=== PATIENT | female | born 1945 | race Two or more races ===

== ENCOUNTER 2020-03-28 08:37 | Outpatient (CLI) | payer OTHER | END 2020-03-28 08:56 | disposition home or self-care (01) | LOC: SONOGRAMA 08:37 | PROVIDERS: ATTEND Internal Medicine Gastroenterology | DX: R94.6 Abnormal results of thyroid function studies (principal); E05.90 Thyrotoxicosis, unspecified without thyrotoxic crisis or storm ==

== ENCOUNTER 2020-05-09 10:21 | Outpatient (CLI) | payer OTHER | END 2020-05-09 12:00 | disposition home or self-care (01) | LOC: OFIC 805 10:21 | PROVIDERS: ATTEND Otolaryngology Otology & Neurotology | DX: K21.9 Gastro-esophageal reflux disease without esophagitis (principal); J02.8 Acute pharyngitis due to other specified organisms; R13.19 Other dysphagia; H90.3 Sensorineural hearing loss, bilateral ==

== ENCOUNTER 2023-05-22 07:54 | Outpatient (CLI) | payer OTHER | END 2023-05-22 08:13 | disposition home or self-care (01) | LOC: RX STUDY 07:54 | DX: K21.9 Gastro-esophageal reflux disease without esophagitis (principal) ==